=== PATIENT | male | born 2000 | race Caucasian/White ===

== ENCOUNTER 2019-11-06 15:41 | Outpatient (CLI) | payer OTHER | END 2019-11-09 | LOC: COL.RAD | DX: M51.17 Intervertebral disc disorders with radiculopathy, lumbosacral region (principal) ==

== ENCOUNTER → 2019-11-15 | Outpatient (CLI) | payer OTHER ==
[~2019-11-15] VITALS: Ht 182.9 cm; Wt 83.3 kg
[2019-11-15 12:23] VITALS: BP 154/84; PULSE 108
[2019-11-15 13:05] VITALS: BP 127/85; PULSE 75
== END ==
LOC: COL.RAD 12:06
DX: M51.16 Intervertebral disc disorders with radiculopathy, lumbar region (principal)
CPT/HCPCS: J3301

== ENCOUNTER → 2020-01-22 | Outpatient (CLI) | payer OTHER ==
[~2020-01-22] VITALS: Ht 182.9 cm; Wt 84.4 kg
[2020-01-22 08:57] VITALS: BP 147/84; PULSE 97
[2020-01-22 09:40] VITALS: BP 141/80; PULSE 60
--- NOTE | 2020-01-22 09:55 | NUR ---
Pt out to car per wheelchair. Pt up and into car without assistance.
== END ==
LOC: COL.RAD 08:48
DX: M51.26 Other intervertebral disc displacement, lumbar region (principal)
CPT/HCPCS: J3301